=== PATIENT | female | born 1945 | race American Indian/Alaskan Native ===

== ENCOUNTER → 2018-05-19 | Outpatient (CLI) | payer OTHER ==
[~2018-05-19] MED LIST: ACID REDUCER; AMLO10; AMLO5; ASCO500; ASPI81CH; CAND16; CAND32; FLAX; GEMF600; HYDCHL25; LEVSOD100; METF500C; METO50ER; MULVITMINF; OXYACE5T PO; POTASSIUM; PSYL5.85P; RANI150
== END | disposition home or self-care (01) ==
LOC: LAB SHORT 15:43 → LAB 15:43
PROVIDERS: Obstetrics & Gynecology
DX: Z01.419 Encounter for gynecological examination (general) (routine) without abnormal findings (principal)
CPT/HCPCS: G0123

== ENCOUNTER 2019-06-30 13:26 | Day surgery (SDC) | payer OTHER ==
[~2019-06-30] VITALS: Ht 160 cm; Wt 83.9 kg
[~2019-06-30 13:26] MED LIST changes: +ASPI81CH PO; +AZAT50 PO; +Cinnamon500 MG PO; +Cyclobenzaprine5 MG PO; +DIAZ5 PO; +Daily Multiple1 EACH PO; +EUTHYROX175 MCG; +FLAX PO; +GEMF600 PO; +HYDCHL25 PO; +K-Dur20 MEQ PO; +LOSARTAN POTAS100 MG PO; +METF500C PO; +METO100ER PO; +NITR.4SL SL; +Norvasc10 MG PO; +ROSU10TA PO; +VITAMIN D31000 UNI2 PO; +Vitamin E100 UNIT PO
--- NOTE | 2019-06-30 14:33 | NUR ---
06/30/19 1433 Savita Rose WHEN ASKED PT. IF SHE HAD ANY PAIN, PT. STATED "MY BODY IS TRYING TO GO INTO [employer] HORSES." PT. VERBALIZES SOMEONE EXPLAINED TO HER WHY THIS WAS HAPPENING.
== END 2019-06-30 16:30 | disposition home or self-care (01) ==
LOC: ORSCSDS 13:26
PROVIDERS: Internal Medicine Gastroenterology
PROC: 0DBP8ZX Excision of Rectum, Via Natural or Artificial Opening Endoscopic, Diagnostic (ICD-10-PCS; principal; 2019-06-30 14:45)
PROC: 0DBL8ZX Excision of Transverse Colon, Via Natural or Artificial Opening Endoscopic, Diagnostic (ICD-10-PCS; principal; 2019-06-30 14:45)
PROC: 0DBN8ZX Excision of Sigmoid Colon, Via Natural or Artificial Opening Endoscopic, Diagnostic (ICD-10-PCS; principal; 2019-06-30 14:45)
PROC: 0DBE8ZX Excision of Large Intestine, Via Natural or Artificial Opening Endoscopic, Diagnostic (ICD-10-PCS; principal; 2019-06-30 14:45)
DX: K62.5 Hemorrhage of anus and rectum (principal); R19.7 Diarrhea, unspecified; K50.90 Crohn's disease, unspecified, without complications; D12.3 Benign neoplasm of transverse colon; K63.5 Polyp of colon; K62.1 Rectal polyp; K57.30 Diverticulosis of large intestine without perforation or abscess without bleeding; K64.8 Other hemorrhoids; E11.9 Type 2 diabetes mellitus without complications; I10 Essential (primary) hypertension; E03.9 Hypothyroidism, unspecified; I25.2 Old myocardial infarction; Z79.899 Other long term (current) drug therapy; Z79.82 Long term (current) use of aspirin; Z79.84 Long term (current) use of oral hypoglycemic drugs
CPT/HCPCS: 82947; 88305; J2704; J7120

== ENCOUNTER 2019-07-13 14:53 | Emergency (ER) | payer OTHER ==
[~2019-07-13] VITALS: Ht 157.5 cm; Wt 84.8 kg
[2019-07-13 15:26] LABS: BASOPHILS ABSOLUTE AUTO 0.09 K/mm3 (0.00-0.23); BASOPHILS PERCENT AUTO 1 % (0-2); EOSINOPHILS ABSOLUTE AUTO 0.15 K/mm3 (0.00-0.68); EOSINOPHILS PERCENT AUTO 2 % (0-6); Hematocrit 45.2 % (33.0-51.0); Hemoglobin 14.7 g/dL (11.5-16.0); IMMATURE GRAN ABSOLUTE AUTO 0.04 K/mm3 (0.00-0.10); IMMATURE GRAN PERCENT AUTO 1 % (0-1); LYMPHOCYTES PERCENT AUTO 21 % (21-46); MONOCYTES ABSOLUTE AUTO 0.52 K/mm3 (0.16-1.47); MONOCYTES PERCENT AUTO 8 % (4-13); Mean Corpuscular HGB 29.5 pg (26.0-34.0); Mean Corpuscular HGB Conc 32.5 g/dL (31.5-36.5); Mean Corpuscular Volume 91 fL (80-100); Mean Platelet Volume 11.3 fL (9.1-12.4); NEUTROPHILS ABSOLUTE AUTO 4.39 K/mm3 (1.96-9.15); NEUTROPHILS PERCENT AUTO 67 % (41-73); Platelet Count 205 K/mm3 (150-400); RDW Coefficient Variation 14.7 % (11.7-14.2); RDW Standard Deviation 49.1 fL (35.1-46.3); Red Blood Cell Count 4.98 M/mm3 (3.80-5.20); White Blood Cell Count 6.59 K/mm3 (4.00-11.30)
[2019-07-13 16:04] LABS: Alanine Aminotransfer (ALT/SGP 19 U/L (12-78); Albumin, Blood 4.3 g/dL (3.4-5.0); Albumin/Globulin Ratio 1.2 (0.8-1.8); Alk Phos 75 U/L (50-136); Anion Gap 7 mmol/L (6-16); Aspartate Aminotrans (AST/SGOT 22 U/L (12-37); Bilirubin, Total 0.4 mg/dL (0.1-1.0); Blood Urea Nitrogen 13 mg/dL (8-24); Bun/Creatinine Ratio 22.8 (12.0-20.0); CO2, Blood 26 mmol/L (21-32); Calcium, Blood 9.7 mg/dL (8.5-10.1); Chloride, Blood 104 mmol/L (98-108); Creatinine, Blood 0.57 mg/dL (0.40-1.00); Globulin, Blood 3.7 g/dL (2.2-4.0); Glomerular Filtration Rate >60 (60-); Glucose, Blood 94 mg/dL (70-99); Potassium, Blood 3.9 mmol/L (3.5-5.5); Sodium, Blood 137 mmol/L (136-145); Troponin I <0.015 ng/mL (0.000-0.040)
== END 2019-07-13 18:23 | disposition home or self-care (01) ==
LOC: ER 14:53
PROVIDERS: Physician Assistant
DX: I10 Essential (primary) hypertension (principal); Z88.5 Allergy status to narcotic agent; Z79.899 Other long term (current) drug therapy; Z79.84 Long term (current) use of oral hypoglycemic drugs; Z79.82 Long term (current) use of aspirin
CPT/HCPCS: 36415; 71046; 80053; 84484; 85025; 93005; 93010; 96374; 96375; 99285-25; J1200; J1885; J2765; J3010

== ENCOUNTER 2020-06-21 21:04 | Emergency (ER) | payer OTHER ==
[~2020-06-21] VITALS: Ht 157.5 cm; Wt 81.7 kg
== END 2020-06-21 21:46 | disposition home or self-care (01) ==
LOC: ER 21:04
DX: T16.2XXA Foreign body in left ear, initial encounter (principal); I10 Essential (primary) hypertension; Z79.84 Long term (current) use of oral hypoglycemic drugs; Z88.5 Allergy status to narcotic agent; Z79.899 Other long term (current) drug therapy; Z79.82 Long term (current) use of aspirin
CPT/HCPCS: 99282

== ENCOUNTER 2021-01-11 06:11 | Day surgery (SDC) | payer OTHER ==
[~2021-01-11] VITALS: Ht 157.5 cm; Wt 75.6 kg
[2021-01-11] MEDS ORDERED: LEVOTHYROXINE (06:37)
[2021-01-11] MEDS ORDERED: [UNRECOGNIZED DRUG - OTHER] (06:38)
[2021-01-11] MEDS ORDERED: Dicyclomine HCl10 MG (06:39)
[2021-01-11] MEDS ORDERED: Valium2 MG (06:39)
--- NOTE | 2021-01-11 07:15 | NUR ---
01/11/21 0715 CLIF HUGHES PT BOWEL PREP SUTABS
== END 2021-01-11 08:39 | disposition home or self-care (01) ==
LOC: ORSCSDS 06:11
PROVIDERS: Internal Medicine Gastroenterology
PROC: 0DBE8ZX Excision of Large Intestine, Via Natural or Artificial Opening Endoscopic, Diagnostic (ICD-10-PCS; principal; 2021-01-11 07:30)
DX: K62.5 Hemorrhage of anus and rectum (principal); R10.84 Generalized abdominal pain; K50.90 Crohn's disease, unspecified, without complications; K57.30 Diverticulosis of large intestine without perforation or abscess without bleeding; K64.8 Other hemorrhoids; K64.4 Residual hemorrhoidal skin tags; K59.00 Constipation, unspecified; Z86.010 Personal history of colon polyps; I25.2 Old myocardial infarction; Z86.73 Personal history of transient ischemic attack (TIA), and cerebral infarction without residual deficits; I10 Essential (primary) hypertension; E11.9 Type 2 diabetes mellitus without complications; E03.9 Hypothyroidism, unspecified; Z79.899 Other long term (current) drug therapy; Z79.82 Long term (current) use of aspirin; Z79.84 Long term (current) use of oral hypoglycemic drugs
CPT/HCPCS: 82947; 88305; J0330; J0461; J2405; J2704

== ENCOUNTER 2021-12-10 16:46 | Emergency (ER) | payer OTHER ==
[~2021-12-10] VITALS: Ht 160 cm; Wt 75.8 kg
[~2021-12-10 16:46] MED LIST changes: +Dicyclomine HCl10 MG; +LEVOTHYROXINE; +Valium2 MG; +[UNRECOGNIZED DRUG - OTHER]
== END 2021-12-10 18:41 | disposition home or self-care (01) ==
LOC: ER 16:46
DX: S60.221A Contusion of right hand, initial encounter (principal); S00.81XA Abrasion of other part of head, initial encounter; W17.89XA Other fall from one level to another, initial encounter; Z88.5 Allergy status to narcotic agent; Z79.899 Other long term (current) drug therapy; Z79.82 Long term (current) use of aspirin; I10 Essential (primary) hypertension
CPT/HCPCS: 70450; 72125; 93005; 93010; 99284-25

== ENCOUNTER 2021-12-24 06:18 | Day surgery (SDC) | payer OTHER ==
[~2021-12-24] VITALS: Ht 160 cm; Wt 72.0 kg
--- NOTE | 2021-12-24 08:17 | NUR ---
12/24/21 0817 HILDA ROLDAN CONCERNED ABOUT TINGLING PAIN-NUMBNESS IN HAND. REQUESTING PAIN MEDICATION. TRAMADOL GIVEN,
== END 2021-12-24 08:25 | disposition home or self-care (01) ==
LOC: ORSCSDS 06:18
PROVIDERS: Orthopaedic Surgery
PROC: 01N50ZZ Release Median Nerve, Open Approach (ICD-10-PCS; principal; 2021-12-24 07:30)
DX: G56.03 Carpal tunnel syndrome, bilateral upper limbs (principal); M19.012 Primary osteoarthritis, left shoulder; E11.9 Type 2 diabetes mellitus without complications; I10 Essential (primary) hypertension; F32.A Depression, unspecified; F41.9 Anxiety disorder, unspecified; Z79.899 Other long term (current) drug therapy
CPT/HCPCS: 82947; A9270; J0690; J2704; J7120

== ENCOUNTER 2022-07-22 06:44 | Day surgery (SDC) | payer OTHER ==
[~2022-07-22] VITALS: Ht 160 cm; Wt 67.6 kg
[2022-07-22] MEDS ORDERED: METF500 (07:11)
[2022-07-22] MEDS ORDERED: ABILIFY MYCITE5 M2 (07:11)
[2022-07-22] MEDS ORDERED: CYMBALTA20 M1 (07:11)
[2022-07-22] MEDS ORDERED: ERGO400 (07:11)
[2022-07-22] MEDS ORDERED: TOCO1000 (07:11)
== END 2022-07-22 09:00 | disposition home or self-care (01) ==
LOC: ORSCSDS 06:44
DX: K62.5 Hemorrhage of anus and rectum (principal); K50.90 Crohn's disease, unspecified, without complications; D12.2 Benign neoplasm of ascending colon; K64.8 Other hemorrhoids; I25.2 Old myocardial infarction; Z86.73 Personal history of transient ischemic attack (TIA), and cerebral infarction without residual deficits; E11.9 Type 2 diabetes mellitus without complications; I10 Essential (primary) hypertension; E03.9 Hypothyroidism, unspecified; F41.8 Other specified anxiety disorders; Z79.899 Other long term (current) drug therapy
CPT/HCPCS: 82947; 88305; J2704; J7120

== ENCOUNTER 2024-07-28 08:36 | Day surgery (SDC) | payer OTHER ==
[~2024-07-28] VITALS: Ht 160 cm; Wt 69.6 kg
[~2024-07-28 08:36] MED LIST changes: +ABILIFY MYCITE5 M2; +ALBU90OI INH; +Bentyl10 MG PO; +CYMBALTA20 M1; +ERGO400; +EUTHYROX175 MCG PO; +Lactated Ringer's 1,000 ML IV ONE; +METF500; +TOCO1000; +propofoL 50 ML IV ONE
[2024-07-28] MEDS ORDERED: Lactated Ringer's 1,000 ML IV ONE (09:41)
--- NOTE | 2024-07-28 10:43 | NUR ---
07/28/24 1043 Fany Glass POOR PREP, COLONOSCOPY ABORTED
[2024-07-28 11:11] VITALS: BP 120/93
== END 2024-07-28 11:16 | disposition home or self-care (01) ==
LOC: ORSCSDS 08:36
PROVIDERS: Internal Medicine Gastroenterology
PROC: 0DJD8ZZ Inspection of Lower Intestinal Tract, Via Natural or Artificial Opening Endoscopic (ICD-10-PCS; principal; 2024-07-28 10:00)
DX: K50.90 Crohn's disease, unspecified, without complications (principal); E78.5 Hyperlipidemia, unspecified; I10 Essential (primary) hypertension; E11.9 Type 2 diabetes mellitus without complications; E03.9 Hypothyroidism, unspecified; Z79.82 Long term (current) use of aspirin; Z79.899 Other long term (current) drug therapy
CPT/HCPCS: 82947; J2704; J7120

== ENCOUNTER 2024-10-13 11:47 | Day surgery (SDC) | payer OTHER ==
[~2024-10-13] VITALS: Ht 160 cm; Wt 71.8 kg
[~2024-10-13 11:47] MED LIST changes: +Balanced Salt Epinephrine Irrigation Solution 500 mL IR SCH; +Diazepam 5 MG Tab PO PRN; +Diazepam 5 MG Tab PO SCH; -Lactated Ringer's 1,000 ML IV ONE; +Lidocaine HCl/Pf 1% 5 ML VIAL XX SCH; +Moxifloxacin HCL 0.5 MG/0.1 ML 0.4MLSYR LEFTEYE SCH; +Ondansetron 4 MG SoluTab MM PRN; +PHENYLEPHRINE\\TROPICAMIDE\\TETRACAINE OPHTHALMIC DILATING SOLN LEFTEYE PRN; +Povidone-Iodine 450 DROP/30 ML Solution LEFTEYE SCH; +Povidone-Iodine 450 DROP/30 ML Solution ONE; +Tetracaine HCl/Pf 0.5% Opth Soln 4 ml ONE; +Triamcinolone Inj Susp 40 MG / ML 1ML Vial INJ SCH; +Triamcinolone Inj Susp 40 MG / ML 1ML Vial ONE; -propofoL 50 ML IV ONE
[2024-10-13] MEDS ORDERED: Midazolam HCl 1MG / ML 2ML Vial ONE (12:26)
--- NOTE | 2024-10-13 12:26 | NUR ---
10/13/24 1226 Candace Genao TETRAARI: [id number] FELTON: [id number]
[2024-10-13 12:58] VITALS: BP 143/83
== END 2024-10-13 13:18 | disposition home or self-care (01) ==
LOC: ORSCSDS 11:47
PROVIDERS: Ophthalmology
PROC: 08RK3JZ Replacement of Left Lens with Synthetic Substitute, Percutaneous Approach (ICD-10-PCS; principal; 2024-10-13 13:00)
DX: E11.36 Type 2 diabetes mellitus with diabetic cataract (principal); H25.813 Combined forms of age-related cataract, bilateral; I10 Essential (primary) hypertension; F41.9 Anxiety disorder, unspecified; E78.5 Hyperlipidemia, unspecified; Z79.82 Long term (current) use of aspirin; Z79.899 Other long term (current) drug therapy
CPT/HCPCS: 82947; J2250; J3301; V2632

== ENCOUNTER 2024-11-02 06:55 | Day surgery (SDC) | payer OTHER ==
[~2024-11-02] VITALS: Ht 160 cm; Wt 69.2 kg
[~2024-11-02 06:55] MED LIST changes: -Diazepam 5 MG Tab PO PRN; -Diazepam 5 MG Tab PO SCH; -Moxifloxacin HCL 0.5 MG/0.1 ML 0.4MLSYR LEFTEYE SCH; +Moxifloxacin HCL 0.5 MG/0.1 ML 0.4MLSYR RIGHTEYE SCH; -Ondansetron 4 MG SoluTab MM PRN; -PHENYLEPHRINE\\TROPICAMIDE\\TETRACAINE OPHTHALMIC DILATING SOLN LEFTEYE PRN; +PHENYLEPHRINE\\TROPICAMIDE\\TETRACAINE OPHTHALMIC DILATING SOLN RIGHTEYE PRN; -Povidone-Iodine 450 DROP/30 ML Solution LEFTEYE SCH; +Povidone-Iodine 450 DROP/30 ML Solution RIGHTEYE SCH
[2024-11-02] MEDS ORDERED: LOSA50 PO (07:40)
[2024-11-02] MEDS ORDERED: Midazolam HCl 1MG / ML 2ML Vial ONE ×2 (07:57→08:29)
--- NOTE | 2024-11-02 08:08 | NUR ---
11/02/[address] JOHNSON, VERSED 1MG IV X1 GIVEN AT 0806 TO HELP DECREASE PT'S ANXIETY LEVEL. PT PLACED ON PULSE OX TO MONITOR SPO2 AND HR.
[2024-11-02 08:50] VITALS: BP 130/69
== END 2024-11-02 09:01 | disposition home or self-care (01) ==
LOC: ORSCSDS 06:55
PROVIDERS: Ophthalmology
PROC: 08RJ3JZ Replacement of Right Lens with Synthetic Substitute, Percutaneous Approach (ICD-10-PCS; principal; 2024-11-02 08:30)
DX: E11.36 Type 2 diabetes mellitus with diabetic cataract (principal); H25.11 Age-related nuclear cataract, right eye; I10 Essential (primary) hypertension; F41.9 Anxiety disorder, unspecified; E78.5 Hyperlipidemia, unspecified; Z79.899 Other long term (current) drug therapy
CPT/HCPCS: 82947; J2250; J3301; V2632

== ENCOUNTER → 2024-11-07 | Outpatient (CLI) | payer OTHER ==
[~2024-11-07] MED LIST changes: -Balanced Salt Epinephrine Irrigation Solution 500 mL IR SCH; +LOSA50 PO; -Lidocaine HCl/Pf 1% 5 ML VIAL XX SCH; -Moxifloxacin HCL 0.5 MG/0.1 ML 0.4MLSYR RIGHTEYE SCH; -PHENYLEPHRINE\\TROPICAMIDE\\TETRACAINE OPHTHALMIC DILATING SOLN RIGHTEYE PRN; -Povidone-Iodine 450 DROP/30 ML Solution ONE; -Povidone-Iodine 450 DROP/30 ML Solution RIGHTEYE SCH; -Tetracaine HCl/Pf 0.5% Opth Soln 4 ml ONE; -Triamcinolone Inj Susp 40 MG / ML 1ML Vial INJ SCH; -Triamcinolone Inj Susp 40 MG / ML 1ML Vial ONE
[2024-11-09 13:09] LABS: CALPROTECTIN,FECAL 15 ug/g (<=49)
== END ==
LOC: LAB SHORT 07:00 → LAB 07:00
PROVIDERS: Physician Assistant Medical
DX: K50.10 Crohn's disease of large intestine without complications (principal)
CPT/HCPCS: 83993

== ENCOUNTER 2024-11-11 09:02 | Day surgery (SDC) | payer OTHER ==
[~2024-11-11] VITALS: Ht 160 cm; Wt 68.1 kg
[~2024-11-11 09:02] MED LIST changes: +Lactated Ringer's 1,000 ML IV ONE; +propofoL 50 ML IV ONE
[2024-11-11] MEDS ORDERED: Lidocaine HCl/Pf 1% 5 ML VIAL ONE (10:14)
[2024-11-11] MEDS ORDERED: Lactated Ringer's 1,000 ML IV ONE (10:46)
[2024-11-11 12:10] VITALS: BP 113/65
== END 2024-11-11 12:08 | disposition home or self-care (01) ==
LOC: ORSCSDS 09:02
PROVIDERS: Internal Medicine Gastroenterology
PROC: 0DBN8ZX Excision of Sigmoid Colon, Via Natural or Artificial Opening Endoscopic, Diagnostic (ICD-10-PCS; principal; 2024-11-11 10:15)
PROC: 0DBL8ZX Excision of Transverse Colon, Via Natural or Artificial Opening Endoscopic, Diagnostic (ICD-10-PCS; principal; 2024-11-11 10:15)
PROC: 0DBH8ZX Excision of Cecum, Via Natural or Artificial Opening Endoscopic, Diagnostic (ICD-10-PCS; principal; 2024-11-11 10:15)
PROC: 0DBE8ZX Excision of Large Intestine, Via Natural or Artificial Opening Endoscopic, Diagnostic (ICD-10-PCS; principal; 2024-11-11 10:15)
DX: K50.90 Crohn's disease, unspecified, without complications (principal); R19.4 Change in bowel habit; K62.5 Hemorrhage of anus and rectum; Z86.0101 Personal history of adenomatous and serrated colon polyps; D12.0 Benign neoplasm of cecum; D12.3 Benign neoplasm of transverse colon; K63.5 Polyp of colon; K64.4 Residual hemorrhoidal skin tags; F41.9 Anxiety disorder, unspecified; K57.30 Diverticulosis of large intestine without perforation or abscess without bleeding; E78.5 Hyperlipidemia, unspecified; I10 Essential (primary) hypertension; Z79.82 Long term (current) use of aspirin; Z79.899 Other long term (current) drug therapy
CPT/HCPCS: 82947; 88305; J2003; J2704; J7120

== ENCOUNTER → 2024-11-22 | Outpatient (CLI) | payer OTHER ==
[~2024-11-22] MED LIST changes: -Lactated Ringer's 1,000 ML IV ONE; -propofoL 50 ML IV ONE
== END ==
LOC: LAB 17:18 → LAB SHORT 17:18
DX: R82.998 Other abnormal findings in urine (principal)
CPT/HCPCS: 87086; 87147